=== PATIENT | female | born 2005 | race Caucasian/White ===

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

== ENCOUNTER 2023-04-15 00:43 | Emergency (ER) | payer SELFPAY ==
[2023-04-15] MEDS ORDERED: Acetaminophen/oxyCODONE 325-5 MG Tab PO PRN (00:56)
[2023-04-15] MEDS ORDERED: Ketorolac 30 MG/ML SDV IM ONE (01:02)
[2023-04-15] MEDS ORDERED: Cyclobenzaprine 10 MG Tab PO SCH ×2 (01:06→09:00)
== END 2023-04-15 01:35 | disposition home or self-care (01) ==
LOC: FB.ED 00:43
DX: S39.012A Strain of muscle, fascia and tendon of lower back, initial encounter (principal)
CPT/HCPCS: 96372; 99283; A9270-GY; J1885

== ENCOUNTER 2023-04-17 00:19 | Emergency (ER) | payer SELFPAY ==
[2023-04-17] MEDS ORDERED: hydrOXYzine HCl 50 MG/ML SDV IM ONE (00:38)
[2023-04-17] MEDS ORDERED: Morphine 4 MG/ML VIAL IM ONE (00:38)
== END 2023-04-17 01:03 | disposition home or self-care (01) ==
LOC: FB.ED 00:19
DX: M54.50 Low back pain, unspecified (principal); Y99.0 Civilian activity done for income or pay
CPT/HCPCS: 96372; 99283; J2270; J3410

== ENCOUNTER 2023-04-22 16:44 | Emergency (ER) | payer OTHER ==
[2023-04-22] MEDS ORDERED: Baclofen 10 MG Tab PO ONE (17:14)
[2023-04-22] MEDS ORDERED: Acetaminophen/HYDROcodone 325-5 MG Tab PO STA (17:14)
[2023-04-22] MEDS ORDERED: Ketorolac 30 MG/ML SDV IM STA (17:14)
== END 2023-04-22 19:44 | disposition home or self-care (01) ==
LOC: FB.ED 16:44
DX: M51.36 Other intervertebral disc degeneration, lumbar region (principal); M51.34 Other intervertebral disc degeneration, thoracic region
CPT/HCPCS: 72128; 72131; 81025; 96372; 99284; A9270-GY; J1885

== ENCOUNTER 2023-06-30 13:36 | Emergency (ER) | payer OTHER | END 2023-06-30 14:53 | disposition home or self-care (01) | LOC: FB.ED 13:36 | DX: G89.29 Other chronic pain (principal); M54.50 Low back pain, unspecified | CPT/HCPCS: 99283 ==

== ENCOUNTER 2023-09-07 02:59 | Emergency (ER) | payer SELFPAY ==
[2023-09-07] MEDS ORDERED: Sodium Chloride 0.9% 10 ML Syringe FLUSH PRN (03:50)
[2023-09-07] MEDS ORDERED: Morphine 4 MG/ML VIAL IVPUSH ONE (03:51)
[2023-09-07] MEDS ORDERED: Ondansetron 4 MG/2 ML SDV IVPUSH ONE (03:51)
[2023-09-07] MEDS ORDERED: Ketorolac 30 MG/ML SDV IVPUSH ONE (03:51)
[2023-09-07] MEDS ORDERED: Sodium Chloride 0.9% 1,000 ML IV SCH (04:00)
[2023-09-07 04:12] LABS: BASOPHILS PERCENT AUTO 0.5 % (0.2-1.5); EOSINOPHILS ABSOLUTE AUTO 0.1 x10-3/uL (0.0-0.8); EOSINOPHILS PERCENT AUTO 1.7 % (0.6-8.1); HEMATOCRIT 36.9 % (34.2-48.2); HEMOGLOBIN 12.6 g/dL (11.4-15.5); LYMPHOCYTES PERCENT AUTO 31.3 % (18.4-52.1); MEAN CORPUSCULAR HEMOGLOBIN 29.5 pg (23.9-33.9); MEAN CORPUSCULAR HGB CONC 34.1 g/dL (31.9-34.8); MEAN CORPUSCULAR VOLUME 86.5 fL (76.7-100.5); MEAN PLATELET VOLUME 8.8 fL (7.1-12.4); MONOCYTES ABSOLUTE AUTO 0.6 x10-3/uL (0.3-1.0); MONOCYTES PERCENT AUTO 9.9 % (4.4-15.7); NEUTROPHILS ABSOLUTE AUTO 3.7 x10-3/uL (1.5-6.3); NEUTROPHILS PERCENT AUTO 56.6 % (30.8-76.2); PLATELET COUNT,PLT 207 x10(3)uL (151-488); RED BLOOD CELL COUNT 4.27 x10(6)uL (3.60-5.20); RED CELL DISTRIBUTION WIDTH 12.4 % (12.3-16.5); WHITE BLOOD CELL COUNT,WBC 6.5 x10-3/uL (3.0-10.3)
[2023-09-07 04:13] LABS: BILIRUBIN,URINE NEGATIVE (NEGATIVE); GLUCOSE,URINE NORMAL (NORMAL); KETONES,URINE NEGATIVE (NEGATIVE); LEUKOCYTE ESTERASE,URINE NEGATIVE (NEGATIVE); NITRITE,URINE NEGATIVE (NEGATIVE); OCCULT BLOOD,URINE NEGATIVE (NEGATIVE); PROTEIN,URINE NEGATIVE (NEGATIVE); UROBILINOGEN,URINE NORMAL (NEGATIVE)
[2023-09-07 04:14] LABS: APPEARANCE,URINE CLEAR (CLEAR); BACTERIA,URINE FEW (NS); COLOR,URINE YELLOW (YELLOW); RBC,URINE 0-5 (0-5); SQUAMOUS EPITHELIAL CELLS,UR FEW (NS,R,O); WBC,URINE 0-5 (0-5)
[2023-09-07 04:16] LABS: BLOOD UREA NITROGEN,BUN 10 mg/dL (7-18); BUN/CREATININE RATIO 12.5 (9-20); CALCIUM 9.1 mg/dL (8.6-10.2); CARBON DIOXIDE,CO2 25 mmol/L (21-32); CHLORIDE,CL 104 mmol/L (100-110); CREATININE 0.8 mg/dL (0.55-1.02); EST CRCL DRUG DOSING (CG) 84.65 mL/min; ESTIMATED GFR 108 mL/min (>60); GLUCOSE RANDOM 104 mg/dL (80-116); POTASSIUM,K 3.3 mmol/L (3.5-5.3); SODIUM,NA 139 mmol/L (135-145)
[2023-09-07 04:22] LABS: A/G RATIO 1.2; ALANINE AMINOTRANSFERASE,ALT 21 U/L (12-36); ALBUMIN 3.8 g/dL (3.5-5.2); ALKALINE PHOSPHATASE 54 IU/L (56-112); AMYLASE 40 U/L (25-115); ASPARTATE AMNIOTRANSFERASE,AST 17 IU/L (5-25); BILIRUBIN TOTAL 0.4 mg/dL (0.1-1.3); PROTEIN TOTAL,TP 7.1 g/dL (6.0-8.0)
[2023-09-07] MEDS ORDERED: HYDROmorphone 2 MG/ML SDV IVPUSH STA (04:34)
[2023-09-07] MEDS ORDERED: traMADol 50 MG Tab PO ONE (04:34)
[2023-09-07] MEDS ORDERED: Iopamidol 755 Mg/ML 100 ML Bottle IV ONE (04:35)
[2023-09-07] MEDS ORDERED: Potassium Chloride 20 MEQ Tab.ER PO ONE (05:11)
[2023-09-07] MEDS ORDERED: LORazepam 2 MG/ML SDV IVPUSH ONE (05:37)
[2023-09-07 05:40] LABS: AMPHETAMINES SCREEN, URINE NEGATIVE (NEGATIVE); BARBITURATE SCREEN,URINE NEGATIVE (NEGATIVE); BENZODIAZEPINES SCREEN,URINE NEGATIVE (NEGATIVE); BUPRENORPHINE SCREEN,URINE NEGATIVE (NEGATIVE); METHADONE SCREEN, URINE NEGATIVE (NEGATIVE); METHAMPHETAMINE SCREEN, URINE NEGATIVE (NEGATIVE); OXYCODONE SCREEN,URINE NEGATIVE (NEGATIVE); THC SCREEN,URINE POSITIVE (NEGATIVE)
== END 2023-09-07 06:17 | disposition home or self-care (01) ==
LOC: FB.ED 02:59
DX: K59.00 Constipation, unspecified (principal); E87.6 Hypokalemia; F41.1 Generalized anxiety disorder
CPT/HCPCS: 36415; 74177; 80053; 80307; 81001; 81025; 82150; 83690; 85025; 96361; 96374; 96375; 99284-25; A9270-GY; J1170; J1885; J2060; J2270; J2405; J7030

== ENCOUNTER 2023-10-18 17:52 | Emergency (ER) | payer OTHER ==
[2023-10-18] MEDS ORDERED: Ketorolac 30 MG/ML SDV IM ONE (18:17)
[2023-10-18] MEDS ORDERED: SUMAtriptan 6 MG/0.5 ML SDV SUBCUT ONE (18:17)
[2023-10-18] MEDS ORDERED: Meclizine 25 MG Tab PO ONE (18:18)
[2023-10-18] MEDS ORDERED: hydrOXYzine HCl 50 MG/ML SDV IM ONE (18:19)
[2023-10-18] MEDS ORDERED: Prochlorperazine 10 MG/2 ML SDV IVPUSH ONE (19:25)
[2023-10-18] MEDS ORDERED: Sodium Chloride 0.9% 10 ML Syringe FLUSH PRN (19:25)
[2023-10-18] MEDS ORDERED: Dihydroergotamine 1 MG/1 ML Amp IVPUSH ONE (19:25)
[2023-10-18] MEDS ORDERED: Acetaminophen/oxyCODONE 325-5 MG Tab PO PRN (19:26)
[2023-10-18] MEDS ORDERED: Sodium Chloride 0.9% 1,000 ML IV SCH (19:30)
[2023-10-18] MEDS ORDERED: LORazepam 2 MG/ML SDV IVPUSH ONE (19:31)
[2023-10-18 19:47] LABS: BASOPHILS PERCENT AUTO 0.2 % (0.2-1.5); EOSINOPHILS ABSOLUTE AUTO 0.1 x10-3/uL (0.0-0.8); EOSINOPHILS PERCENT AUTO 0.9 % (0.6-8.1); HEMATOCRIT 38.5 % (34.2-48.2); LYMPHOCYTES PERCENT AUTO 22.2 % (18.4-52.1); MEAN CORPUSCULAR HEMOGLOBIN 30.2 pg (23.9-33.9); MEAN CORPUSCULAR HGB CONC 33.8 g/dL (31.9-34.8); MEAN CORPUSCULAR VOLUME 89.4 fL (76.7-100.5); MONOCYTES ABSOLUTE AUTO 0.6 x10-3/uL (0.3-1.0); MONOCYTES PERCENT AUTO 6.7 % (4.4-15.7); NEUTROPHILS ABSOLUTE AUTO 6.4 x10-3/uL (1.5-6.3); PLATELET COUNT,PLT 208 x10(3)uL (151-488); RED BLOOD CELL COUNT 4.31 x10(6)uL (3.60-5.20); RED CELL DISTRIBUTION WIDTH 13.8 % (12.3-16.5); WHITE BLOOD CELL COUNT,WBC 9.1 x10-3/uL (3.0-10.3)
[2023-10-18 19:50] LABS: BLOOD UREA NITROGEN,BUN 16 mg/dL (7-18); CALCIUM 8.8 mg/dL (8.6-10.2); CARBON DIOXIDE,CO2 28 mmol/L (21-32); CHLORIDE,CL 103 mmol/L (100-110); CREATININE 0.8 mg/dL (0.55-1.02); EST CRCL DRUG DOSING (CG) 84.65 mL/min; ESTIMATED GFR 108 mL/min (>60); GLUCOSE RANDOM 88 mg/dL (80-116); POTASSIUM,K 3.7 mmol/L (3.5-5.3); SODIUM,NA 138 mmol/L (135-145)
== END 2023-10-18 21:00 | disposition home or self-care (01) ==
LOC: FB.ED 17:52
DX: G43.909 Migraine, unspecified, not intractable, without status migrainosus (principal); Z86.16 Personal history of COVID-19
CPT/HCPCS: 80048; 85025; 96361; 96372; 96374; 96375; 99284; A9270; J0780; J1885; J2060; J3030; J3410; J7030